=== PATIENT | female | born 1965 | race Caucasian/White ===

== ENCOUNTER 2017-04-05 20:09 | Observation (INO) | payer SELFPAY ==
[~2017-04-05] VITALS: Ht 170.2 cm; Wt 90.7 kg
[2017-04-05 20:42] LABS: BASOPHILS 0.1 % (0-2); EOSINOPHILS 0.2 % (0-7); HEMATOCRIT 41.4 % (36.0-48.0); HEMOGLOBIN 13.9 g/dL (12-16); IMMATURE GRANULOCYTES 0.3 % (0-5); LYMPHOCYTES 7.1 % (15-50); MCH 31.7 pg (26.0-34.0); MCHC 33.6 g/dL (31.0-37.0); MCV 94.3 fL (80.0-100.0); MEAN PLATELET VOLUME 9.6 fL (7.4-10.4); MONOCYTES 10.1 % (2-11); NEUTROPHILS 82.2 % (40-80); PLATELET COUNT 182 10x3/uL (130-400); RBC 4.39 10x6/uL (4.00-5.40); RDW 12.9 % (11.5-14.5); WBC 17.2 10x3/uL (4.8-10.8)
[2017-04-05 20:54] LABS: APPEARANCE CLEAR (CLEAR); BILIRUBIN NEGATIVE (NEGATIVE); COLOR YELLOW (YELLOW); GLUCOSE NEGATIVE (NEGATIVE); KETONE NEGATIVE (NEGATIVE); NITRITE NEGATIVE (NEGATIVE); PROTEIN TRACE mg/dL (NEGATIVE); SPECIFIC GRAVITY 1.015 (1.005-1.020); UROBILINOGEN NORMAL (NORMAL)
[2017-04-05 21:06] LABS: UDS - AMPHET POSITIVE QUAL (NEGATIVE); UDS - BARB NEGATIVE QUAL (NEGATIVE); UDS - BENZO POSITIVE QUAL (NEGATIVE); UDS - COCAINE NEGATIVE QUAL (NEGATIVE); UDS - OPIATE POSITIVE QUAL (NEGATIVE); UDS - PCP NEGATIVE QUAL (NEGATIVE); UDS - THC NEGATIVE QUAL (NEGATIVE)
[2017-04-05 21:23] LABS: ALBUMIN 3.7 g/dL (3.4-5.0); ANION GAP 15.8 mmol/L (8-16); BILIRUBIN - TOTAL 0.7 mg/dL (0.2-1.3); CALCIUM 8.4 mg/dL (8.5-10.1); CARBON DIOXIDE 24.5 mmol/L (21.0-32.0); CREATININE - SERUM 1.1 mg/dL (0.6-1.3); POTASSIUM - SERUM 4.3 mmol/L (3.5-5.1); PROTEIN - SERUM 6.7 g/dL (6.4-8.2)
[2017-04-05 21:35] LABS: HCG SERUM NEGATIVE (NEGATIVE)
[2017-04-05] MEDS ORDERED: IBUPROFEN200 MG PO (23:03)
[2017-04-05] MEDS ORDERED: OXYCODONE HCL5 MG PO (23:04)
[2017-04-06 04:40] LABS: BASOPHILS 0.2 % (0-2); EOSINOPHILS 0.4 % (0-7); HEMATOCRIT 39.8 % (36.0-48.0); HEMOGLOBIN 13.5 g/dL (12-16); IMMATURE GRANULOCYTES 0.3 % (0-5); LYMPHOCYTES 14.6 % (15-50); MCH 31.7 pg (26.0-34.0); MCHC 33.9 g/dL (31.0-37.0); MCV 93.4 fL (80.0-100.0); MEAN PLATELET VOLUME 9.7 fL (7.4-10.4); MONOCYTES 9.2 % (2-11); NEUTROPHILS 75.3 % (40-80); PLATELET COUNT 191 10x3/uL (130-400); RBC 4.26 10x6/uL (4.00-5.40)
[2017-04-06 04:53] LABS: WBC 12.8 10x3/uL (4.8-10.8)
[2017-04-06 05:01] LABS: ALBUMIN 3.4 g/dL (3.4-5.0); ANION GAP 12.2 mmol/L (8-16); BILIRUBIN - TOTAL 0.5 mg/dL (0.2-1.3); CALCIUM 8.6 mg/dL (8.5-10.1); CARBON DIOXIDE 27.9 mmol/L (21.0-32.0); POTASSIUM - SERUM 4.1 mmol/L (3.5-5.1); PROTEIN - SERUM 6.9 g/dL (6.4-8.2)
--- NOTE | 2017-04-07 12:30 | CN ---
PATIENT NAME:RONIT COON MEDICAL RECORD: [id number] : 65 LOCATION:[facility]- ADMIT DATE: 04/05/17 ACCOUNT: [id number] CONSULTING PHYSICIAN: GUSTAVO GUNN MD REFERRING PHYSICIAN: STEVEN ANDRE MD DATE OF CONSULTATION: 04/06/2017 PSYCHIATRIC CONSULTATION IDENTIFYING DATA: The patient is 51 years old and she is admitted to the hospital on a voluntary basis. CHIEF COMPLAINT: Overdose. HISTORY OF PRESENT ILLNESS: The patient was brought to the hospital with mental status changes and apparently reportedly took a large number of oxycodone. There were approximately 40 tablets missing from a prescription that was filled a couple of weeks ago. The patient apparently had written some sort of a note to her family saying that she could not take things anymore. Prior to me seeing the patient, she eloped from the Emergency Room and was brought back to the hospital by the police. She endorses numerous neurovegetative depressive symptoms, is highly distraught, but then goes on to say that everything is fine and she is not depressed. She wants to leave the hospital. She does have a history of chaotic and dysfunctional interpersonal functioning. She strongly denies a substance abuse history, even though she is positive for amphetamines, benzodiazepines and opiates. MENTAL STATUS EXAMINATION: The patient is awake, alert and oriented to person, place, time and situation. Her mood is flat. Her affect is constricted. Thought processes are circumstantial. Memory, concentration and abstraction abilities are mildly impaired and she denies that she would seek to harm herself or others as well as psychotic symptoms. ASSESSMENT: 1. Major depression. 2. Probable polysubstance abuse. 3. Cluster B personality disorder. PLAN: At this time, the patient in my view is acutely dangerous. She has written a note, she took an overdose of medication and she attempted to elope from the Emergency Room. I think that she should be confined to inpatient psychiatric care once medically stabilized. Her long-term prognosis is guarded. TRANSINT:[id number] Voice Confirmation ID: [id number] DOCUMENT ID: [id number] GUSTAVO GUNN MD at 1230 CC: [id number] DICTATION DATE: 04/06/17 1314 TAX ADJUSTER: 04/06/17 1403 DIS IN 04/07/17 [facility] [address] [place] [address]
== END 2017-04-07 02:56 | disposition short-term general hospital (02) ==
LOC: D.ER 20:09 → OBSVTIME 21:50 → D.CVICU 21:50 → D.ICU 21:50 → D.SDCHOLD 21:50 → D.ER 21:50 → D.ICU 04-06 07:38
PROVIDERS: Emergency Medicine; ADMIT Emergency Medicine
DX: T40.2X2A Poisoning by other opioids, intentional self-harm, initial encounter (principal); F11.10 Opioid abuse, uncomplicated; M25.511 Pain in right shoulder; G89.29 Other chronic pain; M54.9 Dorsalgia, unspecified; F32.2 Major depressive disorder, single episode, severe without psychotic features; F60.9 Personality disorder, unspecified; Z72.0 Tobacco use